=== PATIENT | male | born 1955 | race Caucasian/White ===

== ENCOUNTER 2016-10-18 12:28 | Day surgery (SDC) | payer MEDICARE ==
[~2016-10-18] VITALS: Ht 177.8 cm; Wt 68.2 kg
[~2016-10-18 12:28] MED LIST: ADVAIR 250/501 DISK INH; ATIVAN1 MG PO; IBUPROFEN200 MG PO; LISINOPRIL5 MG PO; TESTOSTERON200 MG/ML IM
[2016-10-18 14:06] LABS: HEMATOCRIT 45.7 % (42.0-54.0); HEMOGLOBIN 15.7 g/dL (13.5-17.5); MCH 34.5 pg (26.0-34.0); MCHC 34.4 g/dL (31.0-37.0); MCV 100.4 fL (80.0-100.0); MEAN PLATELET VOLUME 10.8 fL (7.4-10.4); RBC 4.55 10x6/uL (4.20-6.10); RDW 13.3 % (11.5-14.5); WBC 5.2 10x3/uL (4.8-10.8)
[2016-10-18 14:13] LABS: INR 1.07 (0.85-1.17); PROTIME 13.7 SECONDS (11.6-15.0)
[2016-10-18 14:14] LABS: APTT 33.7 SECONDS (22.8-39.4)
[2016-10-18 14:20] LABS: ALBUMIN 3.9 g/dL (3.4-5.0); ANION GAP 12.9 mmol/L (8-16); BILIRUBIN - TOTAL 0.84 mg/dL (0.2-1.3); CALCIUM 9.5 mg/dL (8.5-10.1); CARBON DIOXIDE 26.9 mmol/L (21.0-32.0); CREATININE - SERUM 1.1 mg/dL (0.6-1.3); POTASSIUM - SERUM 4.8 mmol/L (3.5-5.1); PROTEIN - SERUM 7.6 g/dL (6.4-8.2)
[2016-10-18 14:44] VITALS: BP 105/73; Ht 177.8 cm; Wt 68.2 kg
--- NOTE | 2016-10-18 17:24 | NUR ---
1715 IV DC WITH CATHER TIP INTACT
--- NOTE | 2016-10-24 14:33 | OP ---
PATIENT NAME: BRANDON BRUNO [facility] [place]ICAL RECORD: [id number] :54 LOCATION:[place] ADMISSION DATE: SURGEON: ASHVIN SANDERS MD DATE OF OPERATION: 10/18/2016 PROCEDURE: Colonoscopy with biopsy and polypectomy. REFERRING PHYSICIAN: Martínez Reid MD INDICATIONS: Mr. Bruno is a delightful 61-year-old gentleman with a history of alcohol-related cirrhosis, chronic renal insufficiency, portal hypertension and a history of colon polyps. His last colonoscopy was 12/23/2012 that showed 3 proximal ascending colon polyps and 1 proximal rectal polyp (polyp histopathology showed a hyperplastic and a tubular adenomatous polyp. He presents for outpatient surveillance colonoscopy. PREMEDICATIONS: Total IV anesthesia (ASA 3, history of cirrhosis), propofol (per anesthesia record). INSTRUMENT: Dick or Bro video colonoscope. PROCEDURE AND FINDINGS: After receiving informed consent, Mr. Bruno was placed in left lateral decubitus position and sedated as per anesthesia. After achieving adequate level of sedation, a digital rectal exam was performed that showed no external hemorrhoidal tags, fissures or fistulas, normal sphincter tone, no palpable rectal masses. The colonoscope was introduced per rectally and advanced to the cecum without difficulty. The cecum, IC valve, and appendiceal orifice were identified and appeared normal. As the colonoscope was withdrawn, careful inspection was made of the reagan of the colon. Overall, the mucosa had normal vascular and fold pattern. There was thick adherent stool in the cecum and the ascending colon. Multiple lavages were performed. The prep was fair and improved in the transverse, descending and sigmoid colon and rectum. At the rectosigmoid junction was a diminutive polyp that was cold biopsied. In the rectum were 2 polyps measuring 0.3-0.5 cm in size, sessile, removed with hot biopsy forcep technique. Retroflexion in rectum showed moderate internal hemorrhoids. A modest to fair prep was present. Mr. Bruno tolerated the procedure well, no immediate complications. Withdrawal time was 12 minutes. ASSESSMENT: 1. Small distal rectosigmoid polyp status post cold biopsy. 2. Two rectal polyps, status post hot biopsy removal. 3. Moderate internal hemorrhoids. RECOMMENDATIONS: 1. Follow up histopathology. 2. Avoid aspirin, nonsteroidal anti-inflammatory drugs and BAUTISTA-2 inhibitors for 14 days post polypectomy. 3. High fiber diet. 4. Surveillance colonoscopy in 3-5 years pending nature of polyp histopathology. TRANSINT:[id number] Voice Confirmation ID: [id number] DOCUMENT ID: [id number] OPERATIVE REPORT [id number] BRANDON BRUNO TERRI MD at 1433 CC: MARTÍNEZ REID MD [id number] DICTATION DATE: 10/18/16 1641 DIGITAL STRATEGY DIRECTOR: 10/18/[address] [facility] 10/18/16 [place] [id number] [place] [id number]
== END 2016-10-18 17:28 | disposition home or self-care (01) ==
LOC: D.OPS 12:28
PROVIDERS: Anesthesiology
DX: K62.1 Rectal polyp (principal); K63.5 Polyp of colon; K64.8 Other hemorrhoids; K70.30 Alcoholic cirrhosis of liver without ascites; I12.9 Hypertensive chronic kidney disease with stage 1 through stage 4 chronic kidney disease, or unspecified chronic kidney disease; N18.9 Chronic kidney disease, unspecified; K76.6 Portal hypertension

== ENCOUNTER → 2018-07-22 08:40 | Outpatient (CLI) | payer MEDICARE ==
[2016-10-18 14:44] VITALS: BMI 21.5
[~2018-07-22 08:40] MED LIST changes: +MEGACE 20 MG TA20 MG PO
[2018-07-22 09:34] LABS: BASOPHILS 0.7 % (0-2); EOSINOPHILS 3.8 % (0-7); HEMATOCRIT 37.2 % (42.0-54.0); HEMOGLOBIN 12.6 g/dL (13.5-17.5); IMMATURE GRANULOCYTES 0.2 % (0-5); LYMPHOCYTES 32.2 % (15-50); MCH 32.4 pg (26.0-34.0); MCHC 33.9 g/dL (31.0-37.0); MCV 95.6 fL (80.0-100.0); MEAN PLATELET VOLUME 10.1 fL (7.4-10.4); MONOCYTES 9.1 % (2-11); PLATELET COUNT 109 10x3/uL (130-400); RBC 3.89 10x6/uL (4.20-6.10); RDW 13.9 % (11.5-14.5); WBC 5.5 10x3/uL (4.8-10.8)
[2018-07-22 09:51] LABS: ALBUMIN 3.7 g/dL (3.4-5.0); BILIRUBIN - DIRECT 0.23 mg/dL (0.00-0.30); BILIRUBIN - INDIRECT 0.58 mg/dL (0.00-1.00); BILIRUBIN - TOTAL 0.81 mg/dL (0.2-1.3); PROTEIN - SERUM 7.3 g/dL (6.4-8.2)
== END | disposition home or self-care (01) ==
LOC: D.US 08:40
PROVIDERS: Internal Medicine Gastroenterology
DX: K70.30 Alcoholic cirrhosis of liver without ascites (principal); R79.89 Other specified abnormal findings of blood chemistry; K76.6 Portal hypertension

== ENCOUNTER 2018-07-31 09:57 | Day surgery (SDC) | payer MEDICARE ==
[~2018-07-31] VITALS: Ht 177.8 cm; Wt 65.5 kg
--- NOTE | ~2018-07-31 | OP ---
PATIENT NAME: BRANDON BRUNO MEDICAL RECORD: [id number] :53 LOCATION:[place] ADMISSION DATE: SURGEON: ASHVIN SANDERS MD DATE OF OPERATION: 07/31/2018 PROCEDURE: EGD with biopsy. REFERRING PHYSICIAN: Dr. Martínez Reid. INDICATIONS: Mr. Bruno is a delightful 63-year-old gentleman with a history of cirrhosis secondary to alcohol (he has remained abstinent from alcohol since October 2017). Last EGD in 08/2016 showed grade I esophageal varices, small hiatal hernia, gastropathy of portal hypertension and gastritis. He has had ascites in the past, which has required paracentesis. Presently, he is not having any abdominal distention or lower extremity edema. Right upper quadrant ultrasound, 01/2018, showed no ascites. No focal mass, cholelithiasis without findings of acute cholecystitis. He has a history of a slightly elevated alpha-fetoprotein (6.5). In July 2017, his alpha-fetoprotein was 7.7. He presents for outpatient surveillance EGD. PREMEDICATIONS: Total IV anesthesia, propofol 200 mg (COPD and cirrhosis). INSTRUMENT: Olympus video gastroscope. PROCEDURE AND FINDINGS: After receiving informed consent, Mr. Burno's posterior pharynx was anesthetized with Cetacaine spray, placed in left lateral decubitus position, sedated as per anesthesia. After achieving adequate level of sedation, gastroscope was introduced per orally and advanced to duodenum without difficulty. The esophageal mucosa was without erythema or ulcers. Repeated inspections showed no evidence of esophageal varices on this exam. A nonobstructive ring was present at the GE junction (asymptomatic) and a small hiatal hernia was noted. Gastric mucosa was notable for mild diffuse erythema of the antrum and antral biopsies were obtained to rule out Helicobacter pylori. There were minimal changes of gastropathy of portal hypertension in the body of the stomach. No lesions were seen. No varices were seen in the cardia or fundus. Pylorus was patent and competent. Duodenal mucosa was without erythema or ulcers, appeared normal to the second portion. Gastroscope was then withdrawn. Mr. Bruno tolerated the procedure well, no immediate complications. ASSESSMENT: 1. Absence of esophageal varices on this exam. 2. Nonobstructive Schatzki's ring, asymptomatic. 3. Small hiatal hernia. 4. Mild gastropathy of portal hypertension. 5. Mild gastritis. RECOMMENDATIONS: 1. Follow up histopathology. 2. Recommend a surveillance EGD in 1 year. TRANSINT:[id number] Voice Confirmation ID: [id number] DOCUMENT ID: [id number] OPERATIVE REPORT [id number] BRANDON BRUNO TERRI MD at 1534 CC: MARTÍNEZ REID MD [id number] DICTATION DATE: 07/31/18 1245 HULL OUTFIT SUPERVISOR: 07/31/18 1336 [facility] 07/31/18 [place] [id number] [place] [address]
[~2018-07-31 09:57] MED LIST changes: -MEGACE 20 MG TA20 MG PO
[2018-07-31 10:26] LABS: APTT 32.2 SECONDS (22.8-39.4); INR 0.97 (0.85-1.17); PROTIME 12.5 SECONDS (11.6-15.0)
[2018-07-31 10:30] LABS: ALBUMIN 3.6 g/dL (3.4-5.0); ALKALINE PHOSPHATASE 74 U/L (46-116); ALT (SGPT) 31 U/L (10-68); BILIRUBIN - TOTAL 0.44 mg/dL (0.2-1.3); CALC OSMOLALITY 274 mosm/kg (275-300); CALCIUM 8.8 mg/dL (8.5-10.1); CARBON DIOXIDE 26.5 mmol/L (21.0-32.0); CHLORIDE - SERUM 105 mmol/L (98-107); GLUCOSE 105 mg/dL (74-106); PROTEIN - SERUM 7.2 g/dL (6.4-8.2); SODIUM 138 mmol/L (136-145); UREA NITROGEN 10 mg/dL (7-18); eGFR NON AFRICAN AMERICAN 80 mL/min (90-120)
[2018-07-31 10:37] LABS: BASOPHILS 0.9 % (0-2); EOSINOPHILS 4.8 % (0-7); HEMATOCRIT 36.8 % (42.0-54.0); HEMOGLOBIN 12.1 g/dL (13.5-17.5); IMMATURE GRANULOCYTES 0.2 % (0-5); MCH 31.8 pg (26.0-34.0); MCHC 32.9 g/dL (31.0-37.0); MCV 96.8 fL (80.0-100.0); MEAN PLATELET VOLUME 9.6 fL (7.4-10.4); MONOCYTES 7.2 % (2-11); NEUTROPHILS 49.9 % (40-80); PLATELET COUNT 123 10x3/uL (130-400); RDW 14.2 % (11.5-14.5); WBC 5.4 10x3/uL (4.8-10.8)
[2018-07-31] MEDS ORDERED: MEGACE 20 MG TA20 MG PO (10:40)
[2018-07-31 10:47] VITALS: Ht 177.8 cm; Wt 65.5 kg
== END 2018-07-31 13:50 | disposition home or self-care (01) ==
LOC: D.OPS 09:57
PROVIDERS: Anesthesiology
DX: K22.2 Esophageal obstruction (principal); K44.9 Diaphragmatic hernia without obstruction or gangrene; K76.6 Portal hypertension; K70.30 Alcoholic cirrhosis of liver without ascites; K31.89 Other diseases of stomach and duodenum; K29.70 Gastritis, unspecified, without bleeding; Z01.812 Encounter for preprocedural laboratory examination